=== PATIENT | male | born 1985 | race Caucasian/White ===

== ENCOUNTER 2021-02-04 11:53 | Outpatient (CLI) | payer BC | END 2021-02-04 11:54 | disposition home or self-care (01) | LOC: MRI 11:53 | PROVIDERS: ATTEND Nurse Practitioner Acute Care | DX: G40.001 Localization-related (focal) (partial) idiopathic epilepsy and epileptic syndromes with seizures of localized onset, not intractable, with status epilepticus (principal); J34.89 Other specified disorders of nose and nasal sinuses; R60.0 Localized edema | CPT/HCPCS: 70553; 95816 ==